=== PATIENT | female | born 1990 | race Caucasian/White ===

== ENCOUNTER 2018-12-17 22:13 | Observation (INO) | payer OTHER ==
[~2018-12-17] VITALS: Ht 152.4 cm; Wt 70.7 kg
[2018-12-17] MEDS ORDERED: BCP (22:20)
--- NOTE | 2018-12-17 22:32 | NUR ---
ASSESSMENT MADE. ERP AT BEDSIDE. C/O EPIGASTRIC PAIN SINCE 2 PM. CONSTANT SHARP / BURNING SENSATION. VOMITED ONCE.
[2018-12-17] MEDS ORDERED: ONDANSETRON 2MG/ML, 2ML ONE (22:38)
[2018-12-17] MEDS ORDERED: FAMOTIDINE 20 MG/2 ML ONE (22:38)
[2018-12-17] MEDS ORDERED: MORPHINE SULFATE 4 MG/ML, 1ML ONE (22:38)
[2018-12-17] MEDS: MORPHINE SULFATE 4 MG/ML, 1ML IVPush PRN (22:52)
--- NOTE | 2018-12-17 22:52 | NUR ---
IV PLACED. BLOOD DRAWN, URINE SAMPLE OBTAINED AND SENT TO LAB. MEDICATED FOR PAIN AND NAUSEA. IVF HUNG.
[2018-12-17 22:54] LABS: BASOPHILS # (AUTO) 0.01 x10^3/uL (0-0.1); BASOPHILS % (AUTO) 0 % (0-1); EOSINOPHILS # (AUTO) 0.01 x10^3/uL (0-0.4); EOSINOPHILS % (AUTO) 0 % (1-7); LYMPHOCYTES # (AUTO) 0.72 x10^3/uL (1-3.4); LYMPHOCYTES % (AUTO) 6 % (22-44); MD NO; MEAN CORPUSCULAR HEMOGLOBIN 27.9 pg (27.0-34.8); MEAN CORPUSCULAR HGB CONC 32.5 g/dL (32.4-35.8); MEAN CORPUSCULAR VOLUME 85.8 fL (80-100); MEAN PLATELET VOLUME 9.4 fL (7.4-10.4); MONOCYTES % (AUTO) 2 % (2-9); NEUTROPHILS % (AUTO) 93 % (42-75); PLATELET COUNT 224 x10^3/uL (130-400); RED BLOOD COUNT 4.63 x10^6/uL (3.82-5.3); RED CELL DISTRIBUTION WIDTH 13.8 % (9.6-15.2)
[2018-12-17] MEDS ORDERED: ONDANSETRON 2MG/ML, 2ML IVPush ONE (23:00)
[2018-12-17] MEDS ORDERED: SODIUM CHLORIDE 0.9% 1,000ML IVBOLUS ONE (23:00)
[2018-12-17] MEDS ORDERED: FAMOTIDINE 20 MG/2 ML IVP ONE (23:00)
[2018-12-17] MEDS ORDERED: SODIUM CHLORIDE FLUSH 10ML SYR IVF ONE (23:00)
[2018-12-17 23:05] LABS: ALANINE AMINOTRANSFERASE 10 U/L (12-78); ALBUMIN 3.8 g/dL (3.4-5.0); ANION GAP 10 mmol/L (5-15); CALCIUM 8.8 mg/dL (8.5-10.1); CHLORIDE 106 mmol/L (98-107); CREATININE 0.82 mg/dL (0.55-1.02)
[2018-12-17 23:08] LABS: ALKALINE PHOSPHATASE 51 U/L (45-117); BILIRUBIN,TOTAL 0.5 mg/dL (0.2-1.0)
--- NOTE | 2018-12-17 23:08 | NUR ---
PATIENT TO ULTRASOUND.
[2018-12-17 23:09] LABS: HCG UR SG 1.029 (1.003-1.030)
[2018-12-17 23:10] LABS: CULTURE INDICATED? YES; MICROSCOPIC INDICATED
--- NOTE | 2018-12-17 23:15 | NUR ---
BACK FROM ULTRASOUND. AWAITING RESULTS.
--- NOTE | 2018-12-18 00:25 | NUR ---
PT TO CT NOW. POC DISCUSSED. PT DENIES FURTHER NEEDS AT THIS TIME.
[2018-12-18] MEDS ORDERED: OMNIPAQUE 350 MG/ML, 100ML BOTTLE ONE (00:36)
--- NOTE | 2018-12-18 01:40 | NUR ---
CHART UP FOR MD TO RE-EVAL.
[2018-12-18] MEDS ORDERED: CEFOTETAN PMX 1GM/50ML 50 ML IV ONE (02:00)
[2018-12-18] MEDS ORDERED: CEFOTETAN PMX 1GM/50ML 50 ML ONE (02:01)
[2018-12-18] MEDS ORDERED: MORPHINE SULFATE 4 MG/ML, 1ML ONE (02:01)
[2018-12-18] MEDS: MORPHINE SULFATE 4 MG/ML, 1ML IVPush PRN (02:08)
--- NOTE | 2018-12-18 02:08 | NUR ---
PATIENT STATES PAIN IS COMING BACK. RE-MEDICATED. ANTIBIOTIC STARTED.
[2018-12-18] MEDS ORDERED: MORPHINE SULFATE 4 MG/ML, 1ML IVPush PRN (02:30)
[2018-12-18] MEDS ORDERED: NS + 20MEQ KCL 1,000 ML IV SCH (02:30)
[2018-12-18] MEDS ORDERED: ONDANSETRON 2MG/ML, 2ML IVPush PRN (02:30)
--- NOTE | 2018-12-18 02:53 | NUR ---
bed assigned. report to SHANA Bowers. patient pain free at this time.
[2018-12-18 03:15] VITALS: BP 128/85
[2018-12-18] MEDS ORDERED: BUPIVACAINE/EPI 0.5% 1:200K ONE (05:30)
[2018-12-18] MEDS ORDERED: BUPIVACAINE/PF-EPI 0.5% 1:200K INFIL ONE (05:34)
[2018-12-18] MEDS ORDERED: PROPOFOL 10 MG/ML, 20ML ONE ×2 (05:50→06:14)
[2018-12-18] MEDS ORDERED: MIDAZOLAM 1 MG/ML, 2ML ONE (05:50)
[2018-12-18] MEDS ORDERED: FENTANYL PF 100 MCG/2ML ONE ×2 (05:50→06:27)
[2018-12-18] MEDS ORDERED: OXYcodone 5 MG/5 ML ORAL.SOL UDC PO PRN (06:00)
[2018-12-18] MEDS ORDERED: PROMETHAZINE 25 MG/ML, 1ML IV PRN (06:00)
[2018-12-18] MEDS ORDERED: ONDANSETRON ODT 8 MG PO PRN (06:00)
[2018-12-18] MEDS ORDERED: ACETAMINOPHEN 325 MG TABLET PO PRN (06:00)
[2018-12-18] MEDS ORDERED: HYDROmorphone 2 MG/ML, 1ML IVPush PRN (06:00)
[2018-12-18] MEDS ORDERED: FENTANYL PF 100 MCG/2ML IV PRN (06:00)
[2018-12-18] MEDS ORDERED: ONDANSETRON 2MG/ML, 2ML IV PRN ×2 (06:00→08:30)
[2018-12-18] MEDS ORDERED: LORazepam 2 MG/ML, 1ML IVPush PRN (06:00)
[2018-12-18] MEDS ORDERED: DIAZEPAM 5 MG/ML, 2ML IVPush PRN (06:00)
[2018-12-18] MEDS ORDERED: ROCURONIUM 10MG/ML,5ML ONE (06:14)
[2018-12-18] MEDS ORDERED: DEXAMETHASONE 4 MG/ML, 1ML ONE (06:14)
[2018-12-18] MEDS ORDERED: NEOSTIGMINE 1 MG/ML, 10ML ONE (06:14)
[2018-12-18] MEDS ORDERED: ONDANSETRON 2MG/ML, 2ML ONE (06:14)
[2018-12-18] MEDS ORDERED: GLYCOPYRROLATE 0.2MG/1ML, 5ML ONE (06:14)
[2018-12-18] MEDS ORDERED: SUCCINYLCHOLINE 20 MG/ML, 10ML ONE (06:14)
[2018-12-18] MEDS ORDERED: CEFAZOLIN 1,000 MG ONE (06:14)
[2018-12-18] MEDS ORDERED: OXYcodone 5 MG/5 ML ORAL.SOL UDC ONE (06:27)
[2018-12-18 07:35] VITALS: BP 109/71
[2018-12-18] MEDS ORDERED: MORPHINE SULFATE 4 MG/ML, 1ML IV PRN (08:30)
[2018-12-18] MEDS ORDERED: SODIUM CHLORIDE 0.9% 1,000 ML IV SCH (08:30)
[2018-12-18] MEDS ORDERED: PROMETHAZINE 25MG TABLET PO PRN (08:30)
[2018-12-18] MEDS ORDERED: ONDANSETRON ODT 4 MG PO PRN (08:30)
[2018-12-18 09:10] VITALS: BP 100/67
[2018-12-18] MEDS ORDERED: OXYC5TAB2 PO (09:18)
[2018-12-18] MEDS ORDERED: PROM25TA10 PO (09:21)
[2018-12-18] MEDS ORDERED: OXYcodone IR 5MG TABLET PO PRN (09:55)
== END 2018-12-18 10:00 | disposition home or self-care (01) ==
LOC: ED 12-18 00:11 → INTOOBSV 12-18 02:20 → EDIP 12-18 02:20 → 4NOR 12-18 03:07 → DCLOUNGE 12-18 09:52
PROVIDERS: ADMIT Surgery; ATTEND Surgery
DX: K35.80 Unspecified acute appendicitis (principal); R11.2 Nausea with vomiting, unspecified; Z98.891 History of uterine scar from previous surgery
CPT/HCPCS: 36415; 44970; 74177; 76700; 80053; 81001; 81025; 83690; 85025; 87086; 88304; 96361; 96365; 96375; 96376; 99284; G0378; J0330; J0690; J1100; J2250; J2270; J2405; J2704; J2710; J3480; J3490; J7030; Q9967; 96366; J3010